=== PATIENT | male | born 1990 | race Caucasian/White ===

== ENCOUNTER → 2020-05-13 | Outpatient (CLI) | payer OTHER ==
[2020-05-13 09:58] LABS: Basophils % (A) 1 %; Eosinophils # (A) 0.2 k/uL (0-0.7); Eosinophils % (A) 3 %; HCT 42.2 % (39.0-53.0); HGB 14.6 gm/dL (13.0-17.5); Lymphocytes # (A) 1.7 k/uL (1.0-4.8); Lymphocytes % (A) 27 %; MCH 30.4 pg (25.0-35.0); MCHC 34.5 g/dL (31.0-37.0); MCV 88.4 fL (80.0-100.0); Mean Platelet Volume 7.5; Monocytes # (A) 0.3 k/uL (0-1.0); Monocytes % (A) 5 %; Neutrophils % (A) 64 %; Platelet Count 228 k/uL (150-450); RBC 4.78 m/uL (4.30-5.90); RDW 12.1 % (11.5-15.5); WBC 6.2 k/uL (3.8-10.6)
--- NOTE | 2020-05-13 11:39 | US ---
EXAMINATION TYPE: US scrotum with doppler. DATE OF EXAM: 05/13/2020 COMPARISON: NONE CLINICAL HISTORY: 29-year-old male left N50.89 TESTICULAR MASS. TECHNIQUE: Grayscale and color Doppler Duplex imaging performed of the scrotum. FINDINGS: EXAM MEASUREMENTS: TESTICLES: Right Testicle: 4.3 x 2.7 x 3.8 cm Left Testicle: 5.2 x 2.6 x 3.1 cm EPIDIDYMIS HEAD: Right Epididymis: Not well visualized. Left Epididymis: Not well visualized. Doppler performed to assess for testicular vascularity; good bilateral color flow and waveforms are s een. There is no evidence of testicular torsion. Presence of hydroceles: No Presence of varicoceles: No IMPRESSION: No scrotal/testicular mass identified. No hydrocele or sizable varicocele. No sonographic evidence fo r testicular torsion.
[2020-05-13 16:35] LABS: African American GFR (CKD) 92.8 (60.0-200.0); Albumin 4.7 g/dL (3.80-4.90); Albumin/Globulin Ratio 2.24 (1.60-3.17); Anion Gap 9.3 mmol/L (4.00-12.00); BUN/Creat Ratio 13.33 Ratio (12.00-20.00); Calcium 9.4 mg/dL (8.7-10.3); Carbon Dioxide 22.7 mmol/L (21.6-31.8); Chol/HDL Ratio 3.51; Globulin 2.1 g/dL (1.6-3.3); LDL Cholesterol,Calculated 90.6 mg/dL (0.0-131.0); Non-African American GFR(CKD) 80.1 (60.0-200.0); Total Bilirubin 0.3 mg/dL (0.2-1.2); Total Protein 6.8 g/dL (6.2-8.2); VLDL Calculation 17.4 mg/dL (5.00-40.00)
== END ==
LOC: WWCWWP 09:02
PROVIDERS: ATTEND Family Medicine
DX: N50.89 Other specified disorders of the male genital organs (principal); K21.9 Gastro-esophageal reflux disease without esophagitis; K27.9 Peptic ulcer, site unspecified, unspecified as acute or chronic, without hemorrhage or perforation; Z00.00 Encounter for general adult medical examination without abnormal findings
CPT/HCPCS: 76870; 80053; 80061; 85025; 93975

== ENCOUNTER 2020-09-02 10:31 | Day surgery (SDC) | payer OTHER ==
[2020-08-30 08:46] VITALS: BMI 26.4
[~2020-09-02 10:31] MED LIST: LACTATED RINGERS 1,000 ML IV SCH
[2020-09-02 10:50] VITALS: TEMP 97.8
[2020-09-02] MEDS ORDERED: LIDOCAINE 1% (10MG/ML) FOR IV START INTRADERMA ONE (10:53)
[2020-09-02] MEDS ORDERED: PROPOFOL 10 MG/ML 20 ML VIAL IV ONE (11:57)
[2020-09-02] MEDS ORDERED: LIDOCAINE 1% INJ 10MG/ML (20 ML MDV) ONE (11:57)
--- NOTE | 2020-09-02 12:26 | P.PCN ---
Date of Procedure: 09/02/20 Description of Procedure: BRIEF HISTORY: Patient is a 29-year-old male presenting for EGD for evaluation of GERD. The patient is currently on Protonix which he takes once daily generally before supper. He reports frequent episodes of morning nausea and regurgitation of what he describes as bile. He reports that he generally eats her last meal around 6 PM and is not eating late at night. He denies any dysphagia or odynophagia. PROCEDURE PERFORMED: Esophagogastroduodenoscopy with biopsy. PREOPERATIVE DIAGNOSIS: GERD. ESTIMATED BLOOD LOSS: Minimal. IV sedation per anesthesia. PROCEDURE: After informed consent was obtained, the patient was brought into the endoscopy unit. IV sedation was administered by Anesthesia under continuous monitoring. Initially the Olympus GIF-190 video endoscope was inserted into the mouth. Esophagus intubated without any difficulty. It was gradually advanced into the stomach and duodenum and carefully examined. The bulb and the second part of the duodenum appeared normal, With biopsies taken. The scope at this time was withdrawn to the stomach, adequately insufflated with air, and upon careful examination, mucosa of the antrum, body, cardia and the fundus appeared normal, With biopsies of antrum and body taken. The scope was then withdrawn into the esophagus. The GE junction was located at 40 cm from the incisors, With a small 1 cm hiatal hernia noted. The esophagus appeared normal, Except for some mild erythema in the distal esophagus consistent with LA grade a esophagitis with biopsies of the lower esophagus taken. There were no erosions or ulcerations seen and the patient tolerated the procedure well. IMPRESSION: 1. LA grade a esophagitis. 2. Small hiatal hernia. 3. Biopsies of the duodenum, antrum and body, and lower esophagus. RECOMMENDATIONS: The findings of this examination were discussed with the patient and his family. Okay to resume diet. Okay to resume medications. Extensive discussion with the patient regarding GERD lifestyle modifications, would recommend the addition of famotidine 20 mg before bed to help with no warning symptoms of nausea and reflux.
[2020-09-02 12:47] VITALS: BP 114/72; PULSE 90; RESP 20
== END 2020-09-02 13:03 | disposition home or self-care (01) ==
LOC: ORWHC2ENDO 10:31
PROVIDERS: ATTEND Internal Medicine
DX: K29.50 Unspecified chronic gastritis without bleeding (principal); K21.00 Gastro-esophageal reflux disease with esophagitis, without bleeding; K44.9 Diaphragmatic hernia without obstruction or gangrene; Z98.890 Other specified postprocedural states; J45.909 Unspecified asthma, uncomplicated; Z79.899 Other long term (current) drug therapy
CPT/HCPCS: 88305; 43239; J2001; J2704